=== PATIENT | female | born 1995 | race Two or more races ===

== ENCOUNTER 2025-07-20 18:23 | Emergency (ER) | payer OTHER ==
[~2025-07-20] VITALS: Ht 167.6 cm; Wt 49.9 kg
[2025-07-20 18:58] VITALS: BP 123/74; O2SAT 100
[2025-07-20] MEDS ORDERED: KETOROLAC TROMETHAMINE 60 MG VIAL IM ONE (19:30)
[2025-07-20] MEDS ORDERED: ORPHENADRINE CITRATE 30 MG/ML AMPUL IM ONE (19:30)
[2025-07-20] MEDS ORDERED: CEFTRIAXONE SODIUM 1,000 MG VIAL IM ONE (19:30)
[2025-07-20] MEDS ORDERED: DEXAMETHASONE SODIUM PHOSPHATE 4 MG/ML VIAL IM ONE (19:30)
[2025-07-20] MEDS ORDERED: KETO10TA2 PO (19:36)
[2025-07-20] MEDS ORDERED: PEPCID AC20 MG PO (19:36)
[2025-07-20] MEDS ORDERED: AMOX-CLAV 875-1 EACH PO (19:36)
== END 2025-07-20 20:04 | disposition home or self-care (01) ==
LOC: ER 18:24
DX: K08.89 Other specified disorders of teeth and supporting structures (principal); Z87.09 Personal history of other diseases of the respiratory system